=== PATIENT | female | born 1990 | race Caucasian/White ===

== ENCOUNTER 2022-05-18 17:30 | Inpatient (IN) | payer BC ==
[~2022-05-18] VITALS: Ht 162.6 cm; Wt 85.3 kg
[2022-05-18 21:10] LABS: HEMOGLOBIN 13.8 gm/dl (12.3-15.3); RED BLOOD COUNT 4.93 M/UL (4.00-5.10); WHITE BLOOD COUNT 15.2 K/UL (4.5-11.0)
[2022-05-19] MEDS ORDERED: HYDROCODON-ACE1 EAC6 PO (02:13)
[2022-05-19] MEDS ORDERED: COLACE 100MG C100 MG PO (02:13)
[2022-05-19] MEDS ORDERED: IBUPROFEN600 MG PO (02:13)
[2022-05-20 04:50] LABS: HEMOGLOBIN 10.3 gm/dl (12.3-15.3)
[2022-05-20] MEDS ORDERED: COLACE 100MG C100 MG PO (12:14)
[2022-05-20] MEDS ORDERED: IBUPROFEN600 MG PO (12:14)
[2022-05-20] MEDS ORDERED: HYDROCODON-ACE1 EAC6 PO (12:14)
== END 2022-05-20 18:11 | disposition home or self-care (01) | DRG 788 ==
LOC: GENOP 17:30 → OB 17:45
PROVIDERS: ADMIT Obstetrics & Gynecology
PROC: 10D00Z1 Extraction of Products of Conception, Low, Open Approach (ICD-10-PCS; principal; 2022-05-18)
PROC: 10H07YZ Insertion of Other Device into Products of Conception, Via Natural or Artificial Opening (ICD-10-PCS; 2022-05-18)
PROC: 4A1HXCZ Monitoring of Products of Conception, Cardiac Rate, External Approach (ICD-10-PCS; 2022-05-18)
DX: O64.0XX0 Obstructed labor due to incomplete rotation of fetal head, not applicable or unspecified (principal); Z37.0 Single live birth; O77.0 Labor and delivery complicated by meconium in amniotic fluid; Z3A.38 38 weeks gestation of pregnancy; Z28.310 Unvaccinated for COVID-19; Z82.49 Family history of ischemic heart disease and other diseases of the circulatory system; Z83.3 Family history of diabetes mellitus
CPT/HCPCS: 36415; 85014; 85018; 85025; 90471; 90715; C9113; J0690; J1170; J2210; J2274; J2370; J2405; J2590; J3010